=== PATIENT | female | born 1945 | race Caucasian/White ===

== ENCOUNTER 2018-05-25 12:31 | Emergency (ER) | payer MEDICARE ==
[~2018-05-25] VITALS: Ht 165.1 cm; Wt 101.2 kg
[~2018-05-25 12:31] MED LIST: AMOCLA875 PO; ASPI81EC PO; CALTRATE D; CRUTCH4 USE; GLIP5 PO; HYDACE10B PO; HYDCHL25 PO; IBUP800 PO; LISI20 PO; MULVITMINF PO; PIOG45 PO; PRAV20 PO; TRAM50 PO; [UNRECOGNIZED DRUG - OTHER]
[2018-05-25] MEDS ORDERED: CLON.5 (14:11)
[2018-05-25] MEDS ORDERED: INSULANPEN (14:11)
[2018-05-25] MEDS ORDERED: Bactrim Ds Tab1 EACH PO (14:13)
[2018-05-25] MEDS ORDERED: Keflex500 MG PO (14:13)
== END 2018-05-25 14:23 | disposition home or self-care (01) ==
LOC: ER 12:31
DX: L03.311 Cellulitis of abdominal wall (principal); L02.211 Cutaneous abscess of abdominal wall; I12.9 Hypertensive chronic kidney disease with stage 1 through stage 4 chronic kidney disease, or unspecified chronic kidney disease; E11.22 Type 2 diabetes mellitus with diabetic chronic kidney disease; N18.9 Chronic kidney disease, unspecified; E78.5 Hyperlipidemia, unspecified; Z79.899 Other long term (current) drug therapy; Z79.82 Long term (current) use of aspirin; Z79.4 Long term (current) use of insulin
CPT/HCPCS: 99283

== ENCOUNTER 2018-05-28 15:01 | Emergency (ER) | payer MEDICARE ==
[~2018-05-28] VITALS: Ht 165.1 cm; Wt 101.2 kg
[~2018-05-28 15:01] MED LIST changes: +Bactrim Ds Tab1 EACH PO; +CLON.5; +INSULANPEN; +Keflex500 MG PO
== END 2018-05-28 15:29 | disposition home or self-care (01) ==
LOC: ER 15:01
DX: L03.311 Cellulitis of abdominal wall (principal); L02.211 Cutaneous abscess of abdominal wall; E11.9 Type 2 diabetes mellitus without complications; E78.00 Pure hypercholesterolemia, unspecified; Z79.899 Other long term (current) drug therapy; Z79.4 Long term (current) use of insulin; Z79.82 Long term (current) use of aspirin
CPT/HCPCS: 99283

== ENCOUNTER 2018-07-13 16:11 | Emergency (ER) | payer MEDICARE, SELFPAY ==
[~2018-07-13] VITALS: Ht 165.1 cm; Wt 102.1 kg
[2018-07-13 17:14] LABS: BASOPHILS ABSOLUTE AUTO 0.05 K/mm3 (0.00-0.23); BASOPHILS PERCENT AUTO 1 % (0-2); EOSINOPHILS ABSOLUTE AUTO 0.16 K/mm3 (0.00-0.68); EOSINOPHILS PERCENT AUTO 2 % (0-6); Hematocrit 42.4 % (33.0-51.0); Hemoglobin 13.8 g/dL (11.5-16.0); IMMATURE GRAN ABSOLUTE AUTO 0.03 K/mm3 (0.00-0.10); IMMATURE GRAN PERCENT AUTO 0 % (0-1); LYMPHOCYTES PERCENT AUTO 20 % (21-46); MONOCYTES ABSOLUTE AUTO 0.65 K/mm3 (0.16-1.47); MONOCYTES PERCENT AUTO 6 % (4-13); Mean Corpuscular HGB 29.5 pg (26.0-34.0); Mean Corpuscular HGB Conc 32.5 g/dL (31.5-36.5); Mean Corpuscular Volume 91 fL (80-100); Mean Platelet Volume 9.1 fL (9.1-12.4); NEUTROPHILS ABSOLUTE AUTO 7.31 K/mm3 (1.96-9.15); NEUTROPHILS PERCENT AUTO 72 % (41-73); Platelet Count 309 K/mm3 (150-400); RDW Coefficient Variation 13.3 % (11.7-14.2); RDW Standard Deviation 44.3 fL (35.1-46.3); Red Blood Cell Count 4.68 M/mm3 (3.80-5.20)
[2018-07-13 17:31] LABS: Albumin, Blood 3.6 g/dL (3.4-5.0); Albumin/Globulin Ratio 0.9 (0.8-1.8); Bilirubin, Total 0.9 mg/dL (0.1-1.0); Bun/Creatinine Ratio 15.1 (12.0-20.0); Calcium, Blood 9.4 mg/dL (8.5-10.1); Creatinine, Blood 0.99 mg/dL (0.40-1.00); Potassium, Blood 4.2 mmol/L (3.5-5.5); Total Protein, Blood 7.6 g/dL (6.4-8.2)
[2018-07-13] MEDS ORDERED: INSU100I6 (19:50)
[2018-07-13] MEDS ORDERED: DESV50 (19:51)
[2018-07-13] MEDS ORDERED: GABA100 (19:51)
[2018-07-13] MEDS ORDERED: ATOR10 (19:51)
[2018-07-13] MEDS ORDERED: VITAMIN D-32000 UNIT (19:52)
[2018-07-13] MEDS ORDERED: TRAM50 (19:52)
[2018-07-13] MEDS ORDERED: Cyclobenzaprine5 MG PO (20:14)
[2018-07-13] MEDS ORDERED: Norco 5-325 Ta1 EACH PO (20:14)
[2018-07-13] MEDS ORDERED: Colace100 MG PO (20:14)
== END 2018-07-13 20:40 | disposition home or self-care (01) ==
LOC: ER 16:11
PROVIDERS: Emergency Medicine
DX: M54.32 Sciatica, left side (principal); E11.22 Type 2 diabetes mellitus with diabetic chronic kidney disease; N18.9 Chronic kidney disease, unspecified; E78.00 Pure hypercholesterolemia, unspecified; Z88.8 Allergy status to other drugs, medicaments and biological substances; Z79.899 Other long term (current) drug therapy; Z79.4 Long term (current) use of insulin; Z79.82 Long term (current) use of aspirin
CPT/HCPCS: 36415; 80053; 81000; 83690; 85025; 96374; 99283-25; J2405

== ENCOUNTER 2018-07-15 15:33 | Emergency (ER) | payer MEDICARE, SELFPAY ==
[~2018-07-15] VITALS: Ht 165.1 cm; Wt 101.6 kg
[~2018-07-15 15:33] MED LIST changes: +ATOR10; +Colace100 MG PO; +Cyclobenzaprine5 MG PO; +DESV50; +GABA100; +INSU100I6; +Norco 5-325 Ta1 EACH PO; +TRAM50; +VITAMIN D-32000 UNIT
[2018-07-15 16:30] LABS: BASOPHILS ABSOLUTE AUTO 0.05 K/mm3 (0.00-0.23); BASOPHILS PERCENT AUTO 1 % (0-2); EOSINOPHILS ABSOLUTE AUTO 0.08 K/mm3 (0.00-0.68); EOSINOPHILS PERCENT AUTO 1 % (0-6); Hematocrit 44.1 % (33.0-51.0); Hemoglobin 14.6 g/dL (11.5-16.0); IMMATURE GRAN ABSOLUTE AUTO 0.03 K/mm3 (0.00-0.10); IMMATURE GRAN PERCENT AUTO 0 % (0-1); LYMPHOCYTES ABSOLUTE AUTO 2.09 K/mm3 (0.84-5.20); LYMPHOCYTES PERCENT AUTO 20 % (21-46); MONOCYTES ABSOLUTE AUTO 0.66 K/mm3 (0.16-1.47); MONOCYTES PERCENT AUTO 6 % (4-13); Mean Corpuscular HGB 29.8 pg (26.0-34.0); Mean Corpuscular HGB Conc 33.1 g/dL (31.5-36.5); Mean Corpuscular Volume 90 fL (80-100); Mean Platelet Volume 9.2 fL (9.1-12.4); NEUTROPHILS ABSOLUTE AUTO 7.46 K/mm3 (1.96-9.15); NEUTROPHILS PERCENT AUTO 72 % (41-73); Platelet Count 328 K/mm3 (150-400); RDW Standard Deviation 42.6 fL (35.1-46.3); White Blood Cell Count 10.37 K/mm3 (4.00-11.30)
[2018-07-15 17:01] LABS: Albumin, Blood 3.7 g/dL (3.4-5.0); Albumin/Globulin Ratio 0.9 (0.8-1.8); Bilirubin, Total 1.8 mg/dL (0.1-1.0); Bun/Creatinine Ratio 18.3 (12.0-20.0); Calcium, Blood 9.8 mg/dL (8.5-10.1); Creatinine, Blood 1.04 mg/dL (0.40-1.00); Potassium, Blood 3.9 mmol/L (3.5-5.5); Total Protein, Blood 7.7 g/dL (6.4-8.2)
[2018-07-15 18:56] LABS: Appearance, Urine Clear (Clear); Bilirubin, Urine Neg (Neg); Blood, Urine 1+ (Neg); Color, Urine Yellow (P-Yellow); Glucose Qualitative, Urine Neg (Neg); Ketones, Urine 4+ (Neg); Leukocyte Esterase, Urine 2+ (Neg); Nitrite, Urine Neg (Neg); Protein, Urine 2+ (Neg); Urobilinogen, Urine 1+ (Normal)
[2018-07-15 19:09] LABS: Bacteria Rare /hpf; Red Blood Cells, Urine 0-2 /hpf (0-2); Squamous Epithelial Cells Few /hpf (Few)
[2018-07-15] MEDS ORDERED: KETO10 PO (20:53)
[2018-07-15] MEDS ORDERED: Macrobid 100 M100 MG PO (20:53)
[2018-07-15] MEDS ORDERED: Zofran4 MG PO (20:53)
== END 2018-07-15 21:31 | disposition home or self-care (01) ==
LOC: ER 15:33
PROVIDERS: Internal Medicine
DX: M54.42 Lumbago with sciatica, left side (principal); N39.0 Urinary tract infection, site not specified; E11.40 Type 2 diabetes mellitus with diabetic neuropathy, unspecified; E78.00 Pure hypercholesterolemia, unspecified; Z79.4 Long term (current) use of insulin; Z79.82 Long term (current) use of aspirin; Z79.899 Other long term (current) drug therapy
CPT/HCPCS: 36415; 80053; 81001; 83690; 85025; 87086; 96372; 96374; 99283-25; J1885; J2405

== ENCOUNTER → 2022-12-29 | Outpatient (CLI) | payer MEDICARE, OTHER ==
[~2022-12-29] MED LIST changes: +ALBU90OI INH; +ASPI81CH PO; +ATOR20 PO; +BASAGLAR K100 UNIT/1 SC; +CENTRUM SILVER1 EAC2 PO; +Clonazepam0.5 MG PO; +DESV50 PO; +FLUT.05NI; +GABA300 PO; +KETO10 PO; +LISI5 PO; +Macrobid 100 M100 MG PO; +NOVOLOG100 UNIT/3 SC; +OYSTER SHELL 51 EACH PO; +VITAMIN D310 MC4 PO; +Zofran4 MG PO
== END ==
LOC: LAB SHORT 07:51 → PLD 07:51
DX: R21 Rash and other nonspecific skin eruption (principal)
CPT/HCPCS: 88312

== ENCOUNTER → 2024-05-03 | Outpatient (CLI) | payer MEDICARE, OTHER | LOC: LAB SHORT 15:04 → LAB 15:04 | DX: R30.0 Dysuria (principal) | CPT/HCPCS: 87086 ==

== ENCOUNTER → 2024-05-13 | Outpatient (CLI) | payer MEDICARE, OTHER ==
[2024-05-13 20:39] LABS: Bacterial Vaginosis PCR Negative (NEGATIVE); Candida Group, PCR NOT DETECTED (NOT DETECT)
[2024-05-13 20:40] LABS: Candida glabrata-krusei, PCR DETECTED (NOT DETECT)
== END | disposition home or self-care (01) ==
LOC: LAB SHORT 18:38
PROVIDERS: Student in an Organized Health Care Education/Training Program
DX: L29.2 Pruritus vulvae (principal)
CPT/HCPCS: 87481; 87661; 87801

== ENCOUNTER → 2024-05-31 | Outpatient (CLI) | payer MEDICARE, OTHER | LOC: LAB SHORT 13:24 → LAB 13:24 | DX: E11.40 Type 2 diabetes mellitus with diabetic neuropathy, unspecified (principal); Z79.4 Long term (current) use of insulin | CPT/HCPCS: 82043 ==

== ENCOUNTER 2025-10-06 20:40 | Observation (INO) | payer MEDICARE ==
[~2025-10-06] VITALS: Ht 162.6 cm; Wt 77.0 kg
[2025-10-06] MEDS ORDERED: NS 1,000 ML IV SCH (20:50)
[2025-10-06 21:19] LABS: BASOPHILS ABSOLUTE AUTO 0.04 K/mm3 (0.00-0.23); BASOPHILS PERCENT AUTO 1 % (0-2); EOSINOPHILS ABSOLUTE AUTO 0.10 K/mm3 (0.00-0.68); EOSINOPHILS PERCENT AUTO 2 % (0-6); Hematocrit 38.0 % (33.0-51.0); Hemoglobin 12.8 g/dL (11.5-16.0); IMMATURE GRAN ABSOLUTE AUTO 0.01 K/mm3 (0.00-0.10); IMMATURE GRAN PERCENT AUTO 0 % (0-1); LYMPHOCYTES ABSOLUTE AUTO 2.25 K/mm3 (0.84-5.20); LYMPHOCYTES PERCENT AUTO 36 % (21-46); MONOCYTES ABSOLUTE AUTO 0.52 K/mm3 (0.16-1.47); MONOCYTES PERCENT AUTO 8 % (4-13); Mean Corpuscular HGB Conc 33.7 g/dL (31.5-36.5); Mean Corpuscular Volume 89 fL (80-100); NEUTROPHILS ABSOLUTE AUTO 3.41 K/mm3 (1.96-9.15); NEUTROPHILS PERCENT AUTO 54 % (41-73); NRBC ABSOLUTE 0.00 K/mm3 (0.00-0.02); NRBC Auto 0.0 /100 WBC (0.0-0.2); Platelet Count 242 K/mm3 (150-400); RDW Coefficient Variation 13.0 % (11.7-14.2); RDW Standard Deviation 42.3 fL (35.1-46.3)
[2025-10-06 21:36] LABS: Alanine Aminotransfer (ALT/SGP 18.0 U/L (12-78); Albumin, Blood 3.5 g/dL (3.4-5.0); Albumin/Globulin Ratio 1.1 (0.8-1.8); Anion Gap 7.0 mmol/L (3-11); Aspartate Aminotrans (AST/SGOT 11.0 U/L (12-37); Bilirubin, Total 1.3 mg/dL (0.1-1.0); Blood Urea Nitrogen 15.0 mg/dL (8-24); CO2, Blood 29.0 mmol/L (21-32); Calcium, Blood 9.3 mg/dL (8.5-10.1); Chloride, Blood 103.0 mmol/L (98-108); Creatinine, Blood 0.76 mg/dL (0.40-1.00); Globulin, Blood 3.2 g/dL (2.2-4.0); Glucose, Blood 424.0 mg/dL (70-99); Potassium, Blood 4.1 mmol/L (3.5-5.5); Sodium, Blood 135.0 mmol/L (136-145); Total Protein, Blood 6.7 g/dL (6.4-8.2)
[2025-10-07] VITALS (8 sets, daily range): BP systolic 99–129; BP diastolic 58–78
[2025-10-07] MEDS ORDERED: METO50ER PO (00:08)
[2025-10-07] MEDS ORDERED: FOSAMAX70 MG PO (00:09)
[2025-10-07] MEDS ORDERED: SITA100T2 PO (00:09)
[2025-10-07] MEDS ORDERED: NS 1,000 ML IV SCH (00:30)
[2025-10-07] MEDS ORDERED: Ondansetron HCl 2 MG / ML 2ML Vial IV PRN (03:20)
[2025-10-07] MEDS ORDERED: FLU VACC TS2025(65UP)/MF59C/PF 45 MCG/0.5 ML SYRINGE IM SCH (03:25)
[2025-10-07 03:28] LABS: Source, Urine Clean Catch
[2025-10-07 03:31] LABS: Bilirubin, Urine Neg (Neg); Glucose Qualitative, Urine 4+ (Neg); Ketones, Urine Neg (Neg); Leukocyte Esterase, Urine Neg (Neg); Protein, Urine Neg (Neg); Specific Gravity, Urine 1.005 (1.003-1.022); Urobilinogen, Urine NORM (Normal)
[2025-10-07 03:41] LABS: Color, Urine Yellow (P-Yellow)
[2025-10-07] MEDS ORDERED: METF500 PO (04:09)
[2025-10-07] MEDS ORDERED: OXYB5 PO (04:10)
[2025-10-07] MEDS ORDERED: FAMO20 PO (04:11)
[2025-10-07 04:55] LABS: Influenza A, PCR NEGATIVE (NEGATIVE); Influenza B, PCR NEGATIVE (NEGATIVE); Resp Syncytial Virus, PCR NEGATIVE (NEGATIVE); SARS-Cov-2 (COVID-19) PCR, MMC NEGATIVE (NEGATIVE)
[2025-10-07 06:17] LABS: BASOPHILS ABSOLUTE AUTO 0.05 K/mm3 (0.00-0.23); BASOPHILS PERCENT AUTO 1 % (0-2); EOSINOPHILS ABSOLUTE AUTO 0.11 K/mm3 (0.00-0.68); EOSINOPHILS PERCENT AUTO 1 % (0-6); Hematocrit 37.4 % (33.0-51.0); Hemoglobin 12.6 g/dL (11.5-16.0); IMMATURE GRAN ABSOLUTE AUTO 0.02 K/mm3 (0.00-0.10); IMMATURE GRAN PERCENT AUTO 0 % (0-1); LYMPHOCYTES ABSOLUTE AUTO 2.88 K/mm3 (0.84-5.20); LYMPHOCYTES PERCENT AUTO 35 % (21-46); MONOCYTES ABSOLUTE AUTO 0.77 K/mm3 (0.16-1.47); MONOCYTES PERCENT AUTO 9 % (4-13); Mean Corpuscular HGB Conc 33.7 g/dL (31.5-36.5); Mean Corpuscular Volume 89 fL (80-100); NEUTROPHILS ABSOLUTE AUTO 4.47 K/mm3 (1.96-9.15); NEUTROPHILS PERCENT AUTO 54 % (41-73); NRBC ABSOLUTE 0.00 K/mm3 (0.00-0.02); NRBC Auto 0.0 /100 WBC (0.0-0.2); Platelet Count 214 K/mm3 (150-400); RDW Coefficient Variation 12.9 % (11.7-14.2); RDW Standard Deviation 42.3 fL (35.1-46.3)
[2025-10-07 06:33] LABS: Alanine Aminotransfer (ALT/SGP 16.0 U/L (12-78); Albumin, Blood 3.1 g/dL (3.4-5.0); Albumin/Globulin Ratio 1.0 (0.8-1.8); Anion Gap 10.0 mmol/L (3-11); Aspartate Aminotrans (AST/SGOT 8.0 U/L (12-37); Bilirubin, Total 1.3 mg/dL (0.1-1.0); Blood Urea Nitrogen 14.0 mg/dL (8-24); CO2, Blood 26.0 mmol/L (21-32); Calcium, Blood 9.0 mg/dL (8.5-10.1); Chloride, Blood 106.0 mmol/L (98-108); Creatinine, Blood 0.66 mg/dL (0.40-1.00); Globulin, Blood 3.0 g/dL (2.2-4.0); Glucose, Blood 344.0 mg/dL (70-99); Potassium, Blood 4.0 mmol/L (3.5-5.5); Sodium, Blood 138.0 mmol/L (136-145); Total Protein, Blood 6.1 g/dL (6.4-8.2)
[2025-10-07 06:34] LABS: Magnesium, Blood 2.0 mg/dL (1.6-2.4); Phosphorus, Blood 2.7 mg/dL (2.5-4.9)
[2025-10-07] MEDS ORDERED: Insulin Human Lispro 100 Units/ML 3ML Syringe SC SCH ×2 (07:30)
[2025-10-07] MEDS ORDERED: Enoxaparin 40 MG/0.4 ML SYR SC SCH (10:00)
[2025-10-07] MEDS ORDERED: LORazepam 2 MG/ML 1ML Injection IV ONE (11:40)
--- NOTE | 2025-10-07 14:18 | NUR ---
NOTE PT REPORTED CLAUSTROPHOBIA, "WOULD LIKE SOMETHING FOR ANXIETY FOR MRI," BREAK RN GOT IV ATIVAN ORDERED, AND GAVE IV ATIVAN PRIOR TO MRI. MRI NOTIFIED. PT TOLERATED MRI. THIS RN FOUND PT OUT IN HALLWAY PT REPORTED "WHERE IS THE BATHROOM." PT UNSTEADY ON FEET, PT REQUIRED TWO NURSE ASSIST TO GET BACK TO BED. THIS RN NOTICED A TRAIL OF URINE ON FLOOR AND CLOTHES SOAKED. BED LINENS CHANGED. PT GOT WIPED DOWN WITH BATH WHIPES AND IN NEW GOWN. PT REPORTED "THAT MEDICATION TOOK ME OUT." NIGHT RN REPORTED PT GOT LITTLE SLEEP LAST NIGHT. PT DROWSY, ABLE TO ANSWER ORIENTING QUESTIONS. FALLS SLEEP WHEN TALKING WITH HER. PT VSS. PT ON TELE. THIS RN NOTIFIED OF EPISODE OF CONFUSION. THIS RN REPORTED RESULTS OF MRI TO . PT IN BED, BED IN LOWEST POSITION, LOCKED, CALL LIGHT IN REACH. BED ALARM ON.
--- NOTE | 2025-10-07 16:43 | NUR ---
CONSULT RECEIVED AND REVIEWED MEDICAL RECORD. NO POLST/AD FOUND ON FILE.
--- NOTE | 2025-10-07 18:22 | NUR ---
SHIFT SUMMARY PT A&OX4. PT ADMITTED DUE TO SEVERE DIZZINESS. PT REPORTS NO SOB, NO CHEST PAIN, PT REPORTS NO GEN PAIN. PT DOESN T REPORT DIZZINESS BUT IS UNSTABLE ON FEET. PT HAS PERSONAL CANE IN ROOM, BUT ENCOURAGED TO USE FWW. PT IS A 1-2 ASSIST W FWW BASED ON DROWSINESS/MENTATION. PHYSICAL THERAPY ATTEMPTED TO WORK WITH PT AFTER MRI, REPORTED WILL COME BACK TOMORROW DUE TO DROWSINESS. PT HAD VISITORS TODAY. PT ON TELE, NO TELE REPORTS NOTED. PT ACHS CBG CHECKS, INSULIN COVERED X2 ORTHOSTATIC VITALS COMPLETE AND REPORTED TO DR. PERSAUD. MRI COMPLETE AND REPORTED TO (PER PREVIOUS NOTE) PT IN BED, BED IN LOWEST POSITION, LOCKED, CALL LIGHT IN REACH, BED ALARM ON. PT CURRENTLY ASLEEP.
[2025-10-08 00:16] VITALS: BP 131/76
[2025-10-08 04:06] VITALS: BP 127/72
[2025-10-08 05:27] LABS: BASOPHILS ABSOLUTE AUTO 0.04 K/mm3 (0.00-0.23); BASOPHILS PERCENT AUTO 1 % (0-2); EOSINOPHILS ABSOLUTE AUTO 0.17 K/mm3 (0.00-0.68); EOSINOPHILS PERCENT AUTO 2 % (0-6); Hematocrit 39.7 % (33.0-51.0); Hemoglobin 13.0 g/dL (11.5-16.0); IMMATURE GRAN ABSOLUTE AUTO 0.02 K/mm3 (0.00-0.10); IMMATURE GRAN PERCENT AUTO 0 % (0-1); LYMPHOCYTES ABSOLUTE AUTO 3.14 K/mm3 (0.84-5.20); LYMPHOCYTES PERCENT AUTO 41 % (21-46); MONOCYTES ABSOLUTE AUTO 0.76 K/mm3 (0.16-1.47); MONOCYTES PERCENT AUTO 10 % (4-13); Mean Corpuscular HGB Conc 32.7 g/dL (31.5-36.5); Mean Corpuscular Volume 90 fL (80-100); NEUTROPHILS ABSOLUTE AUTO 3.63 K/mm3 (1.96-9.15); NEUTROPHILS PERCENT AUTO 47 % (41-73); NRBC ABSOLUTE 0.00 K/mm3 (0.00-0.02); NRBC Auto 0.0 /100 WBC (0.0-0.2); Platelet Count 216 K/mm3 (150-400); RDW Coefficient Variation 13.1 % (11.7-14.2); RDW Standard Deviation 43.4 fL (35.1-46.3)
[2025-10-08 05:47] LABS: Alanine Aminotransfer (ALT/SGP 15.0 U/L (12-78); Albumin, Blood 3.1 g/dL (3.4-5.0); Albumin/Globulin Ratio 1.1 (0.8-1.8); Anion Gap 7.0 mmol/L (3-11); Aspartate Aminotrans (AST/SGOT 13.0 U/L (12-37); Bilirubin, Total 1.4 mg/dL (0.1-1.0); Blood Urea Nitrogen 13.0 mg/dL (8-24); CO2, Blood 28.0 mmol/L (21-32); Calcium, Blood 9.2 mg/dL (8.5-10.1); Chloride, Blood 108.0 mmol/L (98-108); Creatinine, Blood 0.7 mg/dL (0.40-1.00); Globulin, Blood 2.9 g/dL (2.2-4.0); Glucose, Blood 143.0 mg/dL (70-99); Potassium, Blood 3.9 mmol/L (3.5-5.5); Sodium, Blood 139.0 mmol/L (136-145); Total Protein, Blood 6.0 g/dL (6.4-8.2)
--- NOTE | 2025-10-08 05:48 | NUR ---
SHIFT SUMMARY PT A&OX4, PLEASANT AND COOPERATIVE WITH CARE. AT THE BEGINNING OF SHIFT PT WAS HARD TO AROUSE (SEE DAY SHIFT RN NOTE ABOVE). PT RECEIVED ATIVAN PRIOR TO MRI, AND REPORTED THAT THE MEDICATION MADE HER DROWSY. PT BECAME MORE AROUSABLE T/O SHIFT. PT DENIES PAIN, SOB, AND CHEST PAIN. NO ACUTE CHANGES THIS SHIFT. PT RESTED T/O SHIFT, BED IN THE LOWEST POSITION, AND CALL LIGHT WITHIN REACH.
[2025-10-08 07:07] VITALS: BP 123/67
[2025-10-08 11:11] VITALS: BP 98/58
[2025-10-08] MEDS ORDERED: MECL25 PO (11:54)
== END 2025-10-08 12:30 | disposition home or self-care (01) ==
LOC: ER 20:40 → MEDS 20:41 → ENPENDDIS 10-08 11:19 → MEDS 10-08 12:30
PROVIDERS: Student in an Organized Health Care Education/Training Program; ADMIT Internal Medicine
DX: R42 Dizziness and giddiness (principal); E11.65 Type 2 diabetes mellitus with hyperglycemia; E86.0 Dehydration; M19.90 Unspecified osteoarthritis, unspecified site; E78.00 Pure hypercholesterolemia, unspecified; F40.240 Claustrophobia; Z79.4 Long term (current) use of insulin; Z79.82 Long term (current) use of aspirin; Z79.84 Long term (current) use of oral hypoglycemic drugs; Z79.899 Other long term (current) drug therapy; Z88.8 Allergy status to other drugs, medicaments and biological substances; Z98.890 Other specified postprocedural states
CPT/HCPCS: 36415; 70450; 70551; 80053; 81003; 82947; 83735; 83880; 84100; 85025; 87637; 93005; 93010; 96361; 96372; 97116; 97162; 99285-25; A9270; G0378; J1650; J2060; J7030